=== PATIENT | male | born 1955 | race Caucasian/White ===

== ENCOUNTER 2017-03-20 19:41 | Emergency (ER) | payer MEDICARE, BC ==
[2017-03-20 19:46] VITALS: BP 154/92
[2017-03-20] MEDS ORDERED: Lidocaine 1% 30 ML SDV INJECT ONE (19:50)
[2017-03-20 20:49] LABS: CHLORIDE,CL 101 mmol/L (98-107); SODIUM,NA 135 mmol/L (136-145)
[2017-03-20] MEDS ORDERED: Diphtheria,Pertussis(Acell),Tetanus Vaccine 0.5 ML Syringe IM ONE (21:04)
--- NOTE | 2017-04-01 07:44 | ER ---
Date of Service: 03/20/2017 SUBJECTIVE: Roby presents to the emergency room with laceration to the posterior aspect of his head. He has a history of previous cerebrovascular accident and has residual weakness in his lower extremities. The patient was at home when he fell backwards striking his head on a door jamb. The patient had no loss of consciousness. The patient states that he is not experiencing any nausea, vomiting, or headache. He is unsure when his tetanus was last updated. PAST MEDICAL HISTORY: 1. Cerebrovascular disease with prior CVA. 2. Hypertension. 3. Dyslipidemia. 4. GERD. 5. Urinary retention. 6. Depression. 7. Anxiety. 8. Hypothyroidism. MEDICATIONS: 1. Acetaminophen. 2. Lipitor. 3. Dulcolax. 4. Wellbutrin XL. 5. Plavix. 6. Vitamin B12. 7. Folic acid. 8. Levothyroxine. 9. Prinivil. 10.Ativan. 11.Milk of magnesia. 12.Magnesium oxide. 13.Toprol-XL. 14.Multivitamin/minerals. 15.Protonix. 16.Flomax. 17.Trazodone. 18.Effexor XR. ALLERGIES: Dicloxacillin. REVIEW OF SYSTEMS: General. No fever or chills. HEENT: No sore throat, rhinorrhea, congestion. Respiratory: No shortness of breath. Cardiac: No chest pain or palpitations. GI: No nausea, vomiting, or diarrhea. No melena, hematochezia, or hematemesis. : Denies any dysuria. Musculoskeletal: No myalgias or arthralgias. He does complain of lower extremity weakness status post CVA. Neurologic: Please see history of present illness. Denies any focal neuro symptoms. Increased difficulties with speech or known acute changes to his mental status. PHYSICAL EXAMINATION: General: This is a 61-year-old male patient who is in no acute distress. Vital Signs: Blood pressure is 154/92, heart rate is 91, temperature is 36.1, respiratory rate is 18, and O2 saturation 92% on room air. Skin: Warm, pink, and dry. HEENT: Head is normocephalic. He has approximately 6 cm laceration noted to the posterior aspect of the patient's head. No obvious trauma noted to the underlying structures. Eyes, PERRLA. Extraocular movements are intact. Ears, TMs are clear. Lungs: Clear to auscultation. Heart: Regular rate and rhythm. Neurologic: The patient's speech is fluent. Gait is slow and shuffling. Family states that this is normal for the patient. RADIOGRAPHIC DATA: CT scan of the patient's brain was obtained. There was no evidence of any acute pathology. EMERGENCY ROOM COURSE: The laceration was cleansed with Shur-Clens and normal saline. He was anesthetized with approximately 4 mL of 1% lidocaine using sterile technique. A total of 8 skin uli was used to close the laceration. The patient tolerated this well. He remained stable under my care in the emergency room. ASSESSMENT: A 6 cm laceration to the occipital portion of the head. PLAN: The patient will be discharged. Keep the area dry for 24 hours. Return if there is any redness, swelling, or discharge. Sutures out in 10 days. Also, return to the emergency room if he develops any decreased level of consciousness, confusion, or other worrisome signs or symptoms. All questions were answered. CRYSTALK: 04/01/2017 01:19:09 MODL: 04/01/2017 01:50:32 /[id number]
== END 2017-03-20 21:41 | disposition home or self-care (01) ==
LOC: VM.ED 19:41
DX: S01.01XA Laceration without foreign body of scalp, initial encounter (principal); I10 Essential (primary) hypertension; E78.5 Hyperlipidemia, unspecified; K21.9 Gastro-esophageal reflux disease without esophagitis; F41.9 Anxiety disorder, unspecified; F32.9 Major depressive disorder, single episode, unspecified; E03.9 Hypothyroidism, unspecified; Z86.73 Personal history of transient ischemic attack (TIA), and cerebral infarction without residual deficits; Z88.1 Allergy status to other antibiotic agents; W01.198A Fall on same level from slipping, tripping and stumbling with subsequent striking against other object, initial encounter; Z23 Encounter for immunization
CPT/HCPCS: 12002; 12034; 36415; 70450; 80053; 82550; 82553; 84484; 85025; 85610; 90471; 90715; 93005; 99282; 99283-GF-25

== ENCOUNTER 2018-01-15 12:51 | Emergency (ER) | payer MEDICARE, BC ==
[2018-01-15 13:12] VITALS: BP 133/89
[2018-01-15] MEDS ORDERED: Take Home: Amoxicillin/Clavulanate K 875-125 MG Tab, 2 Tab Pack PO ONE ×2 (14:22→14:30)
[2018-01-15] MEDS ORDERED: Famotidine 20 MG Tab PO ONE (14:24)
--- NOTE | 2018-01-15 14:59 | EDM.PDOC ---
ED HPI GENERAL MEDICAL PROBLEM - General Chief Complaint: Gastrointestinal Problem Stated Complaint: vomiting Time Seen by Provider: 01/15/18 13:08 Source of Information: Reports: Patient, Family History Limitations: Reports: No Limitations - History of Present Illness INITIAL COMMENTS - FREE TEXT/NARRATIVE: Pt. was eating at a buffet this morning when he inadvertently aspirated some food. Pt. has a issue with this problem since having a CVA. Pt. had a video swallow study in november that initially was negative for aspiration, but there was some slight spillage after the initial swallow. This happened just prior to coming in to the ER. He states that he is not experiencing any fever or chills. This is a chronic problem with an acute manifestion. He is scheduled to f/u with neurology and apperently is also going to be undergoing an EGD at some point as well. Onset: Today Onset Date: 01/15/18 Onset Time: 13:04 Worsens with: Reports: Eating - Related Data Allergies Allergy/AdvReac Type Severity Reaction Status Date / Time dicloxacillin AdvReac Nausea Verified 04/05/17 00:09 Home Meds: Home Meds Pantoprazole [ProTONIX] 40 mg PO DAILY 05/07/14 [History] Clopidogrel Bisulfate [Clopidogrel] 75 mg PO DAILY 01/29/17 [History] Levothyroxine Sodium [Synthroid] 75 mcg PO ACBREAKFAST 01/29/17 [History] Metoprolol Succinate 25 mg PO DAILY 01/29/17 [History] Venlafaxine HCl [Venlafaxine ER] 225 mg PO DAILY 01/29/17 [History] atorvaSTATin [Lipitor] 40 mg PO BEDTIME 01/29/17 [History] traZODone 50 mg PO BEDTIME 01/29/17 [History] Tamsulosin [Flomax] 0.4 mg PO BEDTIME #0 01/31/17 [Rx] Lisinopril 20 mg PO BEDTIME 03/02/17 [History] Cyanocobalamin (Vitamin B-12) [Vitamin B-12] 1,000 mcg PO DAILY 03/20/17 [ History] Folic Acid 2 tab PO DAILY 03/20/17 [History] Magnesium Gluconate 500 mg PO DAILY 03/20/17 [History] Acetaminophen [Tylenol] 650 mg PO Q4H PRN tablet 04/29/17 [Rx] Nicotine Polacrilex [Nicotine Gum] 2 mg BC ASDIRECTED PRN #1 box 04/29/17 [Rx] buPROPion [Wellbutrin XL] 150 mg PO Q48H #7 tab.er 04/29/17 [Rx] Past Medical History - Past Health History Medical/Surgical History: Denies Medical/Surgical History HEENT History: Reports: Hard of Hearing, Impaired Vision, Other (See Below) Other HEENT History: Presbycusis with patient noncompliant with his left-sided hearing aid Cardiovascular History: Reports: Arrhythmia, Cardiomyopathy, High Cholesterol, Hypertension, Other (See Below) Other Cardiovascular History: Grade 1 diastolic dysfunction by echocardiogram Respiratory History: Reports: COPD, Intubation, Previous, Pneumonia, Recurrent, Pulmonary Fibrosis Gastrointestinal History: Reports: Colon Polyp, Gastritis, GERD, GI Bleed, PUD, Other (See Below) Other Gastrointestinal History: Moderate esophagitis by EGD in March 2017 with history of upper GI bleed at that time, colonic polyp of unknown character removed by colonoscopy in 2004 Genitourinary History: Reports: Acute Renal Failure, BPH, Chronic Renal Insuffiency, Renal Disease, Retention, Urinary, Other (See Below) Other Genitourinary History: nocturia, acute renal failure secondary to dehydration on 01/29/17, grade 3 renal insufficiency Musculoskeletal History: Reports: Arthritis, Back Pain, Chronic, Fracture, Osteoarthritis, Other (See Below) Other Musculoskeletal History: Bursitis, elbow, chronic right foot pain, left hand fracture in about 2004 with surgery as below Neurological History: Reports: CVA, Seizure, Speech Problems, TIA, Other (See Below) Other Neuro History: Possible TIA on 04/04/17, Left basal ganglion and frontal CVA on 04/08/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 falls with the patient requiring one assist and walker use, chronic fatigue Psychiatric History: Reports: Anxiety, Depression Endocrine/Metabolic History: Reports: Hypothyroidism, Other (See Below) Other Endocrine/Metabolic History: hyperglycemia, hypomagnesemia, vitamin B12 deficiency Hematologic History: Reports: Anemia, B12 Deficiency, Folic Acid, Other (See Below) Other Hematologic History: bruises easily Immunologic History: Reports: Other (See Below) Other Immunologic History: Hypoalbuminemia Oncologic (Cancer) History: Reports: None Dermatologic History: Reports: None - Infectious Disease History Infectious Disease History: Reports: Chicken Pox, Measles, Mumps. Denies: C- Difficile, Meningitis, Mononucleosis, MRSA, Pertussis (Whooping Cough), Rubella , Scarlet Fever, Shingles, TB, VRE - Past Surgical History Head Surgeries/Procedures: Reports: None HEENT Surgical History: Reports: LASIK, Oral Surgery, Other (See Below) Other HEENT Surgeries/Procedures: Multiple teeth extractions, LASIK in 2006 GI Surgical History: Reports: Colon, Colonoscopy, EGD, Polypectomy, Other (See Below) Other GI Surgeries/Procedures: Initial colonoscopy in 2004 with removal of probable benign colonic polyp at that time. EGD on 03/06/17 with moderate esophagitis noted, colonoscopy on 03/07/17 to the transverse colon with indication of possible distant previous right hemicolectomy for unknown reason although the patient and his are not aware of the surgery? Endocrine Surgical History: Reports: None Musculoskeletal Surgical History: Reports: ORIF, Other (See Below) Other Musculoskeletal Surgeries/Procedures:: Unknown hand surgery/ORIF of previous fracture in [id number] Oncologic Surgical History: Reports: None Dermatological Surgical History: Reports: None - Past Imaging History Past Imaging History: Reports: Cardiac Echo (04/05/17 with mild grade 1 diastolic dysfunction and otherwise normal ejection fraction of 5055 percent), CAT Scan ( Multiple CTs of the brain with last evaluation initially without contrast in this facility on 04/04/17 and then repeated at [facility] on with subsequent CT of the head and neck with contrast on 04/05/[address]. [address] scan of the head on 03/25/17 with previous evaluations on 03/20/17, , 05/07/14 and 04/08/14), MRA (MRI/MRA of the brain and cervical spine on ), MRI (Brain on 12/09/15), Ultrasound (Abdominal ultrasound on 07/18/12). Denies: Stress Testing Social & Family History - Family History HEENT: Reports: None Cardiac: Reports: Bypass, CAD, Hypertension, AL, Stent, Other (See Below) Other Cardiac Family History: Father with coronary artery disease with known history of AL however CABG in his 90s, mother with coronary artery disease and acute AL with PTCA/stent placement, hypertension in parents and brother GI: Reports: Irritable Bowel Syndrome, PUD, Other (See Below) Other GI Family History: Father with peptic ulcer disease, sister with irritable bowel syndrome : Reports: Other (See Below) Other Family History: Father with BPH Musculoskeletal: Reports: None Neurological: Reports: None Psychiatric: Reports: Anxiety, Depression, Other (See Below) Other Psychiatric Family History: Mother with anxiety depression disorder Endocrine/Metabolic: Reports: Diabetes, type II, Other (See Below) Other Endocrine/Metabolic Family History: Father with diabetes mellitus Hematologic: Reports: None Immunologic: Reports: None Dermatologic: Reports: None Oncologic: Reports: Lung, Skin, Other (See Below) Other Oncologic Family History: Mother with unknown type of skin cancer, sister with fatal metastatic lung cancer in her 40s with no history of tobacco use - Tobacco Use Smoking Status *Q: Former Smoker Used Tobacco, but Quit: Yes Month/Year Tobacco Last Used: 30 years - Caffeine Use Caffeine Use: Reports: Coffee (1 cup 2 times per week). Denies: Energy Drinks, Soda, Tea - Recreational Drug Use Recreational Drug Use: No - Living Situation & Occupation Living situation: Reports: ( in 1978, 2 children), Extended Care Facility (Swing bed unit at [facility]) Occupation: Retired ([employer] and retired since [employer] in 2013) ED ROS GENERAL - Review of Systems Review Of Systems: See Below Constitutional: Reports: No Symptoms HEENT: Reports: No Symptoms Respiratory: Reports: Wheezing, Cough Cardiovascular: Reports: No Symptoms Endocrine: Reports: No Symptoms GI/Abdominal: Reports: Vomiting : Reports: No Symptoms Musculoskeletal: Reports: No Symptoms Skin: Reports: No Symptoms Neurological: Reports: No Symptoms Psychiatric: Reports: No Symptoms Hematologic/Lymphatic: Reports: No Symptoms Immunologic: Reports: No Symptoms ED EXAM, GENERAL - Physical Exam Exam: See Below Exam Limited By: No Limitations General Appearance: Alert, WD/WN, No Apparent Distress Eye Exam: Bilateral Eye: EOMI, Normal Fundi, Normal Inspection, PERRL Ears: Normal External Exam, Normal Canal, Hearing Grossly Normal, Normal TMs Ear Exam: Bilateral Ear: Auricle Normal, Canal Normal, TM normal Nose: Normal Inspection, Normal Mucosa, No Blood Throat/Mouth: Normal Inspection, Normal Lips, Normal Teeth, Normal Gums, Normal Oropharynx, Normal Voice, No Airway Compromise Head: Atraumatic, Normocephalic Neck: Normal Inspection, Supple, Non-Tender, Full Range of Motion Respiratory/Chest: No Respiratory Distress, Lungs Clear, Normal Breath Sounds, No Accessory Muscle Use, Chest Non-Tender Cardiovascular: Normal Peripheral Pulses, Regular Rate, Rhythm, No Edema, No Gallop, No JVD, No Murmur, No Rub GI/Abdominal: Normal Bowel Sounds, Soft, Non-Tender, No Organomegaly, No Distention, No Abnormal Bruit, No Mass Back Exam: Normal Inspection, Full Range of Motion Extremities: Normal Inspection, Normal Range of Motion, Non-Tender, Normal Capillary Refill, No Pedal Edema Course - Vital Signs Last Recorded V/S: Last Vital Signs Temp 36.9 C 01/15/18 13:04 Pulse 92 01/15/18 13:04 Resp 16 01/15/18 13:04 BP 133/89 01/15/18 13:04 Pulse Ox 95 01/15/18 13:04 - Orders/Labs/Meds Orders: Active Orders 24 hr Category Date Time Status Chest 2V [CR] Stat Exams 01/15/18 13:13 Taken Meds: Medications Discontinued Medications Generic Name Dose Route Start Last Admin Trade Name Freq PRN Reason Stop Dose Admin Amoxicillin/Clavulanate Potassium 2 packet 01/15/18 14:22 Take Home: Amox/Clavulanate 875-12, 2 Tab Pac PO 01/15/18 14:23 ONETIME ONE Amoxicillin/Clavulanate Potassium 1 packet 01/15/18 14:30 01/15/18 14:31 Take Home: Amox/Clavulanate 875-12, 2 Tab Pac PO 01/15/18 14:31 1 packet ONETIME ONE Administration Famotidine 20 mg 01/15/18 14:24 01/15/18 14:30 Pepcid PO 01/15/18 14:25 20 mg ONETIME ONE Administration - Radiology Interpretation Free Text/Narrative:: chest x-ray obtained and found to be negative Departure - Departure Time of Disposition: 15:00 Disposition: Home, Self-Care 01 Condition: Good Clinical Impression: Acid reflux - Discharge Information Instructions: Famotidine tablets or gelcaps, Amoxicillin; Clavulanic Acid tablets, Aspiration Precautions, Adult Referrals: Breanna Mayfield, [Primary Care Provider] - Forms: ED Department Discharge Additional Instructions: Pepcid twice daily. Augmentin 875mg twice daily for 10 days. Follow-up with PCP next week. Sit upright for 30 min. after eating. Eat slowly, with smaller meals. Care Plan Goals: It sounds as though, with most of these episodes, the aspiration sometimes happens after the initial swallow. Advised family to encourage pt. to sit upright for 30-60 min after meals. Will start him on pepcid in addition to the pantoprazole to see if this helps with microaspiration of stomach contents. He should have an EGD at some point. His chest x-ray, for now, looks normal. - My Orders Last 24 Hours: My Active Orders 01/15/18 13:13 Chest 2V [CR] Stat - Assessment/Plan Last 24 Hours: My Active Orders 01/15/18 13:13 Chest 2V [CR] Stat
== END 2018-01-15 14:43 | disposition home or self-care (01) ==
LOC: VM.ED 12:51
DX: K21.9 Gastro-esophageal reflux disease without esophagitis (principal); E78.00 Pure hypercholesterolemia, unspecified; I12.9 Hypertensive chronic kidney disease with stage 1 through stage 4 chronic kidney disease, or unspecified chronic kidney disease; N18.9 Chronic kidney disease, unspecified; E03.9 Hypothyroidism, unspecified; Z88.1 Allergy status to other antibiotic agents; Z79.899 Other long term (current) drug therapy; Z87.891 Personal history of nicotine dependence
CPT/HCPCS: 71046; 99283-GF; 99284; A9270-GY

== ENCOUNTER 2018-02-16 08:48 | Day surgery (SDC) | payer MEDICARE, BC ==
[~2018-02-16 08:48] MED LIST: Lactated Ringers 1,000 ML IV SCH
[2018-02-16] MEDS ORDERED: Propofol 200 MG/20 ML SDV ONE (11:17)
[2018-02-16] MEDS ORDERED: Lidocaine 4% 5 ML Amp ONE (11:23)
[2018-02-16 13:31] VITALS: BP 149/86
--- NOTE | 2018-02-16 19:35 | OR ---
SURGERY DATE: 02/16/2018 REFERRING PROVIDER: Breanna Mayfield DO. PRE-OPERATIVE DIAGNOSES: 1. Dysphagia with catching sensation in the midsternal area. The patient had episode on Mother's day where he had emesis due to the dysphagia. 2. History of esophagitis noted last March on EGD. 3. Chronic cough. The patient is currently on Protonix 40 mg daily as well as sucralfate up to 4 times a day although the patient does not remember to take it that often. 4. History of previous stroke in 2013. Positive alcohol use of about 2 drinks per day and chewing tobacco. POST-OPERATIVE DIAGNOSES: 1. A 3 cm sliding-type hiatal hernia with some minimal inflammation present. Cold biopsy is taken from the GE junction. 2. Some mild chronic-appearing enteritis. Cold biopsies taken x2 bites from the antrum. 3. Cold biopsy is also taken from mid esophagus which appeared normal. PROCEDURE: EGD with cold biopsy x3 sites (antrum, GE junction, and mid esophagus). SURGEON: Shaheed Schreiber M.D. ANESTHESIA: Topical anesthesia consisting of Cetacaine spray was used in the pharynx. DESCRIPTION OF PROCEDURE: Roby Marion is a 62-year-old male who was brought to the endoscope suite after discussion of risks and benefits (including but not limited to reaction to medication, bleeding, infection, aspiration, perforation). Informed consent was obtained for monitored anesthesia care and esophagogastroduodenoscopy along with possible biopsy and/or dilatation. Pre-procedure exam including oral cavity was unremarkable. IV, oxygen, and monitors were placed. Topical anesthesia consisting of Cetacaine spray was used in the pharynx. Patient was placed in the left lateral position and sedation was administered. A bite block was placed gently and scope lightly lubricated and passed through the bite block and over the tongue. Hypopharynx and vocal cords were visualized unremarkable. Scope was passed through the cricopharynx and into the esophagus. The scope was then passed through the distal esophagus and the GE junction was visualized and photographed. The GE junction was remarkable for a 3 cm sliding-type hiatal hernia with some minimal inflammation present. Cold biopsy x2 bites taken on the way out. Vocal cords were visualized. The scope was advanced into the stomach and gastric flores was suctioned. Pylorus was identified and intubated and then the scope was advanced to the third portion of the duodenum. The second and third portions of the duodenum were unremarkable. Duodenal bulb was visualized and unremarkable. The scope was brought back into the stomach and the pylorus and antrum were remarkable for some mild chronic-appearing inflammation. Cold biopsy x2 bites taken from the antrum. The scope was brought back into the stomach. Cold biopsy x2 bites was taken from this area to check for H. pylori and sent for path. Scope was then retroflexed to visualize the angularis, fundus, body, and cardia. This view did show the sliding-type hiatal hernia but was otherwise unremarkable. The stomach was desufflated of air and then the scope was slowly withdrawn, and the esophagus was closely visualized during withdrawal all the way into the posterior pharynx. In the upper esophagus there was an area of heterotopic type mucosa. Cold biopsy x2 bites was taken of this area and sent for path. The patient tolerated the procedure well and went to recovery in stable condition. The patient was monitored until at baseline status. Findings and discharge instructions were reviewed and the patient was discharged in good condition. COMPLICATIONS: None. TOTAL TIME: 9 minutes. ESTIMATED BLOOD LOSS: About 1 mL. RECOMMENDATIONS/FOLLOW-UP: We will have the patient change his PPI to twice a day for a month to see if this can make a difference. There was nothing to dilate during the exam today. We will await results of biopsies from 3 separate areas. Okay for the patient to resume his Plavix tomorrow as long as no bleeding issues. I would like to kindly thank you, Breanna Mayfield DO, for this referral. DMB: 02/16/2018 12:20:44 MODL: 02/16/2018 19:28:08 /[id number]
== END 2018-02-16 13:18 | disposition home or self-care (01) ==
LOC: VM.SDS 08:48
PROVIDERS: ATTEND Family Medicine
DX: R13.10 Dysphagia, unspecified (principal); R05 Cough; K29.50 Unspecified chronic gastritis without bleeding; K44.9 Diaphragmatic hernia without obstruction or gangrene; K52.9 Noninfective gastroenteritis and colitis, unspecified; K20.9 Esophagitis, unspecified; I10 Essential (primary) hypertension; G47.00 Insomnia, unspecified; E03.9 Hypothyroidism, unspecified; E53.8 Deficiency of other specified B group vitamins; E83.42 Hypomagnesemia; F33.40 Major depressive disorder, recurrent, in remission, unspecified; F17.220 Nicotine dependence, chewing tobacco, uncomplicated; Z79.02 Long term (current) use of antithrombotics/antiplatelets; Z79.899 Other long term (current) drug therapy; Z88.0 Allergy status to penicillin; Z88.8 Allergy status to other drugs, medicaments and biological substances; Z86.73 Personal history of transient ischemic attack (TIA), and cerebral infarction without residual deficits
CPT/HCPCS: 00731; J2704; J7120

== ENCOUNTER 2019-10-12 15:17 | Emergency (ER) | payer MEDICARE, BC ==
--- NOTE | 2019-10-12 14:19 | EDM.PDOC ---
ED HPI GENERAL MEDICAL PROBLEM - General Chief Complaint: General Stated Complaint: general Time Seen by Provider: 10/12/19 14:30 Source of Information: Reports: EMS, EMS Notes Reviewed, Family History Limitations: Reports: No Limitations, Intoxication - History of Present Illness INITIAL COMMENTS - FREE TEXT/NARRATIVE: Patient comes into the emergency department with EMS for concerns of right sided facial droop and concerns post fall from a standing position while on anticoagulants. contacted EMS in regards to the patient has had an increase in facial droop and unsteady gait. Patient did have a stroke in 2013 that did leave him with some moderate deficits on the right side. Patient does need to ambulate with a walker for safe mobility. He does have facial droop on the right side since his stroke in 2013 but told EMS that she felt it has been getting worse today. Patient did fall approximately 24 hours ago hitting his head. did state that he did develop a laceration to the back of his head at that time but it did stop bleeding on its own. The patient is on Plavix 75 mg daily. She also has a long-standing history of alcohol use. Patient is currently smells of ETOH. The states the patient drinks on a daily basis about 6-10 shots of whiskey mixed in water daily (about 3 tall drinks). is concerned because the patient will drink almost on a daily basis and will not take care of himself. She states that he has no drive or ambition to care for himself any longer. She also states that he will skip meals or eat candy bars in place of meals. She states that the last couple months he has severely deteriorated mentally and physically. She states that he does have a diagnosis of dementia and Alzheimer's and has noticed that he has progressively gotten worse especially when he is under the influence of alcohol. He states that he does normally fall multiple times a day after he has been consuming alcoholic beverages. She also states that she has multiple dense and holes in her was related to his falling. She states that he often will get up without his walker which she is supposed to have at all times. She states that he did wake up this morning around 9 AM without any concerns or complaints however she did notice that he was drinking a tall glass of liquid and would not let her try the beverage. she states he normally will not let her drink the beverage if it does have alcohol in it. She states that he has multiple strong EtOH spell today. The more he has drank the more unsteady he has become throughout the day. She also noted after his second drink he began to develop slurred speech around 10: 30 or 11 AM. Onset: Gradual - Related Data Allergies Allergy/AdvReac Type Severity Reaction Status Date / Time buspirone Allergy Cannot Verified 10/12/19 15:55 Remember dicloxacillin AdvReac Nausea Verified 10/12/19 15:55 Home Meds: Home Meds Pantoprazole [ProTONIX] 40 mg PO DAILY 05/07/14 [History] Clopidogrel Bisulfate [Clopidogrel] 75 mg PO DAILY 01/29/17 [History] Levothyroxine Sodium [Synthroid] 75 mcg PO ACBREAKFAST 01/29/17 [History] Metoprolol Succinate 25 mg PO DAILY 01/29/17 [History] Venlafaxine HCl [Venlafaxine ER] 150 mg PO DAILY 01/29/17 [History] atorvaSTATin [Lipitor] 40 mg PO BEDTIME 01/29/17 [History] traZODone 50 mg PO BEDTIME 01/29/17 [History] Cyanocobalamin (Vitamin B-12) [Vitamin B-12] 1,000 mcg PO DAILY 03/20/17 [ History] Acetaminophen [Tylenol] 650 mg PO Q4H PRN tablet 04/29/17 [Rx] Magnesium Oxide [Magnesium] 500 mg PO DAILY 01/15/18 [History] Venlafaxine HCl [Venlafaxine ER] 75 mg PO DAILY 01/15/18 [History] buPROPion HCl [Wellbutrin Xl] 300 mg PO DAILY 07/23/18 [History] Cephalexin [Keflex] 250 mg PO QID 10 Days #40 capsule 10/12/19 [Rx] Donepezil HCl [Aricept] 10 mg PO BEDTIME 10/12/19 [History] Memantine HCl [Namenda Xr] 28 mg PO DAILY 10/12/19 [History] Past Medical History - Past Health History Medical/Surgical History: Denies Medical/Surgical History HEENT History: Reports: Hard of Hearing, Impaired Vision, Other (See Below) Other HEENT History: dysphagia. esophagitis Cardiovascular History: Reports: High Cholesterol, Hypertension, Syncope Other Cardiovascular History: tachycardia Respiratory History: Reports: COPD, Intubation, Previous, Pneumonia, Recurrent, Pulmonary Fibrosis Other Respiratory History: chronic cough Gastrointestinal History: Reports: Colon Polyp, Gastritis, GERD, GI Bleed, PUD, Other (See Below) Other Gastrointestinal History: Moderate esophagitis by EGD in March 2017 with history of upper GI bleed at that time, colonic polyp of unknown character removed by colonoscopy in 2004 Genitourinary History: Reports: Acute Renal Failure, BPH, Chronic Renal Insuffiency, Renal Disease, Retention, Urinary, Other (See Below) Other Genitourinary History: nocturia, acute renal failure secondary to dehydration on 01/29/17, grade 3 renal insufficiency Musculoskeletal History: Reports: Arthritis, Back Pain, Chronic, Fracture, Osteoarthritis, Other (See Below) Other Musculoskeletal History: 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 falls with the patient requiring one assist and walker use, chronic fatigue Psychiatric History: Reports: Depression Other Psychiatric History: chewing tobacco use. insomnia Endocrine/Metabolic History: Reports: Hypothyroidism Other Endocrine/Metabolic History: hyperglycemia, hypomagnesemia, vitamin B12 deficiency Hematologic History: Reports: B12 Deficiency Other Hematologic History: hypomagnesium Immunologic History: Reports: Other (See Below) Other Immunologic History: Hypoalbuminemia Oncologic (Cancer) History: Reports: None Dermatologic History: Reports: None - Infectious Disease History Infectious Disease History: Reports: Chicken Pox, Measles, Mumps - Past Surgical History Head Surgeries/Procedures: Reports: None HEENT Surgical History: Reports: LASIK, Oral Surgery, Other (See Below) Other HEENT Surgeries/Procedures: Multiple teeth extractions, LASIK in 2006 Cardiovascular Surgical History: Reports: None Respiratory Surgical History: Reports: None GI Surgical History: Reports: Colon, Colonoscopy, EGD, Polypectomy, Other (See Below) Other GI Surgeries/Procedures: Initial colonoscopy in 2004 with removal of probable benign colonic polyp at that time. EGD on 03/06/17 with moderate esophagitis noted, colonoscopy on 03/07/17 to the transverse colon with indication of possible distant previous right hemicolectomy for unknown reason although the patient and his are not aware of the surgery? Male Surgical History: Reports: None Endocrine Surgical History: Reports: None Neurological Surgical History: Reports: None Musculoskeletal Surgical History: Reports: ORIF, Other (See Below) Other Musculoskeletal Surgeries/Procedures:: Unknown hand surgery/ORIF of previous fracture in [id number] Oncologic Surgical History: Reports: None Dermatological Surgical History: Reports: None - Past Imaging History Past Imaging History: Reports: Cardiac Echo (04/05/17 with mild grade 1 diastolic dysfunction and otherwise normal ejection fraction of 5055 percent), CAT Scan ( Multiple CTs of the brain with last evaluation initially without contrast in this facility on 04/04/17 and then repeated at [facility] on with subsequent CT of the head and neck with contrast on 04/05/[address]. [address] scan of the head on 03/25/17 with previous evaluations on 03/20/17, , 05/07/14 and 04/08/14), MRA (MRI/MRA of the brain and cervical spine on ), MRI (Brain on 12/09/15), Ultrasound (Abdominal ultrasound on 07/18/12). Denies: Stress Testing Social & Family History - Family History HEENT: Reports: None Cardiac: Reports: Bypass, CAD, Hypertension, MO, Stent, Other (See Below) Other Cardiac Family History: Father with coronary artery disease with known history of MO however CABG in his 90s, mother with coronary artery disease and acute MO with PTCA/stent placement, hypertension in parents and brother GI: Reports: Irritable Bowel Syndrome, PUD, Other (See Below) Other GI Family History: Father with peptic ulcer disease, sister with irritable bowel syndrome : Reports: Other (See Below) Other Family History: Father with BPH Musculoskeletal: Reports: None Neurological: Reports: None Psychiatric: Reports: Anxiety, Depression, Other (See Below) Other Psychiatric Family History: Mother with anxiety depression disorder Endocrine/Metabolic: Reports: Diabetes, type II, Other (See Below) Other Endocrine/Metabolic Family History: Father with diabetes mellitus Hematologic: Reports: None Immunologic: Reports: None Dermatologic: Reports: None Oncologic: Reports: Lung, Skin, Other (See Below) Other Oncologic Family History: Mother with unknown type of skin cancer, sister with fatal metastatic lung cancer in her 40s with no history of tobacco use - Caffeine Use Caffeine Use: Reports: Coffee (1 cup 2 times per week). Denies: Energy Drinks, Soda, Tea - Living Situation & Occupation Living situation: Reports: ( in 1978, 2 children), Extended Care Facility (Swing bed unit at [facility]) Occupation: Retired ([employer] and retired since CVA in 2013) ED ROS GENERAL - Review of Systems Review Of Systems: See Below Constitutional: Reports: No Symptoms HEENT: Reports: No Symptoms Respiratory: Reports: No Symptoms Cardiovascular: Reports: No Symptoms Endocrine: Reports: No Symptoms GI/Abdominal: Reports: No Symptoms Neurological: Reports: Pre-Existing Deficit (right side facial droop and unsteady gait from strok 2013 ), Trouble Speaking (slurred speech noticed after consuming alcohol ), Difficulty Walking (since stroke 2013- uses walker ). Denies: Dizziness, Headache, Numbness, Paresthesia, Syncope Psychiatric: Reports: No Symptoms Hematologic/Lymphatic: Reports: No Symptoms Immunologic: Reports: No Symptoms ED EXAM, GENERAL - Physical Exam Exam: See Below Exam Limited By: No Limitations General Appearance: Alert, WD/WN, No Apparent Distress Eye Exam: Bilateral Eye: EOMI, PERRL Ears: Normal External Exam, Normal Canal, Hearing Grossly Normal Nose: Normal Inspection, No Blood, Clear Rhinorrhea Throat/Mouth: Normal Lips, Normal Voice, No Airway Compromise Head: Other (scabbed laceration occipital region ) Neck: Normal Inspection, Supple Respiratory/Chest: No Respiratory Distress, Lungs Clear, Normal Breath Sounds, No Accessory Muscle Use, Chest Non-Tender Cardiovascular: Normal Peripheral Pulses, Regular Rate, Rhythm, No Edema GI/Abdominal: Normal Bowel Sounds, Soft, Non-Tender, No Abnormal Bruit, Other ( infected/crusted impetigo lesions noted. mutiple throughout abdomen. Redness around each site. No drainage noted ) Back Exam: Normal Inspection, Full Range of Motion Extremities: Normal Inspection, Non-Tender, No Pedal Edema, Normal Capillary Refill Neurological: Alert, Oriented, No Motor/Sensory Deficits Psychiatric: Normal Affect, Normal Mood Skin Exam: Warm, Dry, Intact, Normal Color, No Rash Course - Orders/Labs/Meds Orders: Active Orders 24 hr Category Date Time Status EKG Documentation Completion [RC] STAT Care 10/12/19 14:15 Active UA RFX KELL AND CULT IF INDIC [URIN] Stat Lab 10/12/19 15:32 Received Labs: Laboratory Tests 10/12/19 10/12/19 10/12/19 Range/Units 14:22 14:42 14:42 WBC 4.3 (4.0-10.0) x10^3/uL RBC 4.39 L (4.5-6.0) x10^6/uL Hgb 13.9 L (14.0-18.0) g/dL Hct 41.4 (40.0-52.0) % MCV 94.3 H D (78.0-93.0) fL MCH 31.7 (26.0-32.0) pg MCHC 33.6 (32.0-36.0) g/dL RDW Coeff of Karin 14.8 (10.0-15.0) % Plt Count 211 (130-400) x10^3/uL Neut % (Auto) 56.5 (50.0-80.0) % Lymph % (Auto) 28.5 (25.0-50.0) % [place] % (Auto) 12.7 H (2.0-11.0) % Eos % (Auto) 2.1 (0.0-4.0) % Baso % (Auto) 0.2 (0.2-1.2) % PT 9.8 L (10.0-12.8) SEC INR 0.9 L (2.0-3.5) Sodium (136-145) mmol/L Potassium (3.5-5.1) mmol/L Chloride (98-107) mmol/L Carbon Dioxide (21-32) mmol/L Anion Gap (10-20) mmol/L BUN (7-18) mg/dL Creatinine (0.70-1.30) mg/dL Est Cr Clr Drug Dosing Estimated GFR (MDRD) Glucose (74-106) mg/dL Calcium (8.5-10.1) mg/dL Corrected Calcium (8.5-10.1) mg/dL Total Bilirubin (0.2-1.0) mg/dL AST (15-37) U/L ALT (16-63) U/L Alkaline Phosphatase (46-116) U/L Troponin I (<=0.056) ng/mL NT-Pro-B Natriuret Pep (<=125) pg/mL Total Protein (6.4-8.2) g/dL Albumin (3.4-5.0) g/dL Globulin Albumin/Globulin Ratio Amylase 74 (25-115) U/L Lipase 134 (73-393) U/L Ethyl Alcohol (0-3) mg/dL 10/12/19 Range/Units 14:42 WBC (4.0-10.0) x10^3/uL RBC (4.5-6.0) x10^6/uL Hgb (14.0-18.0) g/dL Hct (40.0-52.0) % MCV (78.0-93.0) fL MCH (26.0-32.0) pg MCHC (32.0-36.0) g/dL RDW Coeff of Karin (10.0-15.0) % Plt Count (130-400) x10^3/uL Neut % (Auto) (50.0-80.0) % Lymph % (Auto) (25.0-50.0) % [place] % (Auto) (2.0-11.0) % Eos % (Auto) (0.0-4.0) % Baso % (Auto) (0.2-1.2) % PT (10.0-12.8) SEC INR (2.0-3.5) Sodium 146 H (136-145) mmol/L Potassium 3.9 (3.5-5.1) mmol/L Chloride 107 (98-107) mmol/L Carbon Dioxide 25 (21-32) mmol/L Anion Gap 17.9 (10-20) mmol/L BUN 15 (7-18) mg/dL Creatinine 1.2 (0.70-1.30) mg/dL Est Cr Clr Drug Dosing TNP Estimated GFR (MDRD) > 60 Glucose 84 (74-106) mg/dL Calcium 8.7 (8.5-10.1) mg/dL Corrected Calcium 9.26 (8.5-10.1) mg/dL Total Bilirubin 0.4 (0.2-1.0) mg/dL AST 20 (15-37) U/L ALT 19 (16-63) U/L Alkaline Phosphatase 128 H (46-116) U/L Troponin I < 0.017 (<=0.056) ng/mL NT-Pro-B Natriuret Pep 340 H (<=125) pg/mL Total Protein 6.8 (6.4-8.2) g/dL Albumin 3.3 L (3.4-5.0) g/dL Globulin 3.5 Albumin/Globulin Ratio 0.94 Amylase (25-115) U/L Lipase (73-393) U/L Ethyl Alcohol 163 H (0-3) mg/dL - Re-Assessments/Exams Free Text/Narrative Re-Assessment/Exam: 10/12/19 15:54 alert and oriented. VSS. Patient is not willing to be hospitalized. Patient's pulses bedside and is willing to assume care and monitor the patient at home. Did discuss risk and benefits regarding discharge. Spouse willing to assume care and to monitor patient throughout the weekend. Home health referral will be completed. Departure - Departure Time of Disposition: 15:50 Disposition: Home, Self-Care 01 Clinical Impression: Alcohol abuse, Anticoagulant long-term use, Frequent falls, Skin sore, Impetigo Fall Qualifiers: Encounter type: initial encounter Qualified Code(s): W19.XXXA - Unspecified fall, initial encounter Failure to thrive Qualifiers: Failure to thrive age range: in adult Qualified Code(s): R62.7 - Adult failure to thrive - Discharge Information *PRESCRIPTION DRUG MONITORING PROGRAM REVIEWED*: Not Applicable *COPY OF PRESCRIPTION DRUG MONITORING REPORT IN PATIENT LYNN: Not Applicable Instructions: Alcohol Use Disorder, Fall Prevention in the Home, Adult, Easy-to -Read, Failure to Thrive, Adult, Impetigo, Adult, Cephalexin oral suspension, Probiotics, Heart-Healthy Eating Plan Forms: ED Department Discharge Additional Instructions: 1. Take Keflex as prescribed for her impetigo, can continue to use creams to help alleviate discomfort 2. Take a probiotic while taking antibiotics to promote GI health 3. Medication for a daily vitamin chronic alcohol use 4. Education/information is provided regarding fall prevention, activity, diet, and alcohol use disorder 5. Home health referral has been submitted 6. Your primary care per Doctor was sent a referral regarding the [employer] 7. Activity and diet as tolerated 8. Call with any questions or concerns 9. CT scan completed today was negative, labs within normal limits Sepsis Event Note - Focused Exam Date Exam was Performed: 10/12/19 Time Exam was Performed: 15:36 - My Orders Last 24 Hours: My Active Orders 10/12/19 14:15 EKG Documentation Completion [RC] STAT 10/12/19 15:32 UA RFX KELL AND CULT IF INDIC [URIN] Stat - Assessment/Plan Last 24 Hours: My Active Orders 10/12/19 14:15 EKG Documentation Completion [RC] STAT 10/12/19 15:32 UA RFX KELL AND CULT IF INDIC [URIN] Stat Assessment:: 1. Multiple falls 2. Alcohol abuse 3. Intoxication 4. Infected impetigo 5. Slurred speech Plan: 1. A trauma code was initiated prior to the patient's arrival due to patient falling while on anticoagulants. EMS is also concerned patient has a new onset of facial drooping. Stroke protocol was also initiated and followed 2. CT of the head without contrast completed emergency room. Results reviewed with patient and family 3. Labs completed in the ER. Results reviewed with patient and family 4. EKG ordered in the Emergency department 5. UA ordered emergency department 6. 1430 NIH:3 1500 NIH: 3 1535 NIH: 3 7. /spouse at the bedside to discuss long-term options with the family. The is concerned regarding his long-term compliance and rehabilitation. Patient is not willing to be hospitalized and is adamant of his discharge home. Patient and spouse are willing to assume risk with discharge. They are willing to accept a home health referral and referral to [employer] [employer] for further assistance within the home. 8. Education was provided to the patient and family regarding alcohol use, safe mobility in the home, De-cluttering, adequate oral intake, appropriate/healthy diet, activity, diet, and follow-up care 9. Oral Keflex also be given to the patient for an abdominal multiple infected impetigo sores. Patient has taken Keflex in the past with no reaction and is willing to take medication again. Risk regarding medication was provided to the patient. 10. All questions and concerns were addressed with the patient and family prior to discharge
--- NOTE | 2019-10-12 14:56 | CT ---
[id number] CT/CT Head Stroke Protocol EXAM: CT Head Stroke Protocol CLINICAL DATA: STROKE SXS, FALL, ON BLOOD THINNERS. COMPARISON STUDY: July 23, 2018. FINDINGS: No intracranial hemorrhage, extra-axial fluid collection, mass, or acute ischemia. Moderate diffuse parenchymal atrophy and nonspecific chronic white matter disease. Findings are nonspecific but commonly seen as sequela of chronic small vessel disease. Paranasal sinuses and mastoid air cells are clear. IMPRESSION: No acute intracranial findings. Results relayed to Tami Diaz at time of dictation. Daryl Zee MD 10/12/19 [id number] Thank you for allowing us to participate in the care of your patient.
[2019-10-12 15:18] LABS: ANION GAP 17.9 mmol/L (10-20); CHLORIDE,CL 107 mmol/L (98-107); SODIUM,NA 146 mmol/L (136-145)
[2019-10-12] MEDS ORDERED: Sodium Chloride 0.9% 1,000 ML IV ONE (16:40)
== END 2019-10-12 16:13 | disposition home or self-care (01) ==
LOC: VM.ED 16:13
DX: S01.01XA Laceration without foreign body of scalp, initial encounter (principal); F10.129 Alcohol abuse with intoxication, unspecified; Y90.6 Blood alcohol level of 120-199 mg/100 ml; R62.7 Adult failure to thrive; R47.81 Slurred speech; R29.810 Facial weakness; L01.00 Impetigo, unspecified; I12.9 Hypertensive chronic kidney disease with stage 1 through stage 4 chronic kidney disease, or unspecified chronic kidney disease; N18.9 Chronic kidney disease, unspecified; J44.9 Chronic obstructive pulmonary disease, unspecified; E78.00 Pure hypercholesterolemia, unspecified; E03.9 Hypothyroidism, unspecified; F32.9 Major depressive disorder, single episode, unspecified; Z88.1 Allergy status to other antibiotic agents; Z79.01 Long term (current) use of anticoagulants; Z88.8 Allergy status to other drugs, medicaments and biological substances; Z86.73 Personal history of transient ischemic attack (TIA), and cerebral infarction without residual deficits; Z79.02 Long term (current) use of antithrombotics/antiplatelets; Z79.899 Other long term (current) drug therapy; W19.XXXA Unspecified fall, initial encounter
CPT/HCPCS: 36415; 70450; 80053; 80307; 81003; 82150; 83690; 83880; 84484; 85025; 85610; 93005; 96360; 99284; J7030

== ENCOUNTER 2019-12-16 14:00 | Emergency (ER) | payer MEDICARE, BC ==
[2019-12-16] MEDS ORDERED: Sodium Chloride 0.9% 10 ML Syringe FLUSH PRN (14:01)
--- NOTE | 2019-12-16 14:26 | CT ---
[id number] CT/CT Head Stroke Protocol Exam: CT Head Stroke Protocol Clinical Data: NEUROLOGIC DEFICIT COMPARISON: CORRELATION IS MADE WITH OCTOBER 12, 2019 FINDINGS: There is no hyperdense middle cerebral artery sign The aspect score is 10 There is no mass or mass effect There is no hemorrhage or hydrocephalus. Involutional changes are advanced for age Old lacunar hypodensities are seen Report was called at time of the dictation IMPRESSION: NEGATIVE PLAIN CT BRAIN Sumit Saenz MD 12/16/19 1390 Thank you for allowing us to participate in the care of your patient.
[2019-12-16] MEDS ORDERED: MVI, Adult with Vitamin K 10 ML, Folic Acid 1 MG, Thiamine 100 MG in Sodium Chloride 0.... IV SCH ×4 (14:30)
[2019-12-16] MEDS ORDERED: Iopamidol 612 MG/ML 100 ML Bottle IVPUSH ONE (14:31)
[2019-12-16 14:54] LABS: ANION GAP 16.4 mmol/L (10-20); CHLORIDE,CL 104 mmol/L (98-107); SODIUM,NA 143 mmol/L (136-145)
--- NOTE | 2019-12-16 14:56 | EDM.PDOC ---
ED HPI GENERAL MEDICAL PROBLEM - General Stated Complaint: Weakness ? stroke Time Seen by Provider: 12/16/19 14:00 Source of Information: Reports: Patient History Limitations: Reports: No Limitations - History of Present Illness INITIAL COMMENTS - FREE TEXT/NARRATIVE: Patient comes emergency department today from home with his with concerns of neuro changes. According to the patient he drank alcohol quite heavily 2 days ago. Yesterday somewhere between 4 PM and 6 PM he developed increasing right facial droop thick speech as well as difficulty using his right hand and paresthesias to his right arm. He refused to come to the emergency department last night. His symptoms continued today so his brought him to the ER. He relates that he does have a history of a stroke. He does have a history of dementia as well as alcoholism. He reports that he falls on a daily basis. He probably fell 2 days ago when he was drinking but he is unsure. He denies any head neck or back pain. He denies any visual disturbances. He does complain of a thick tongue that feels swollen and difficult for him to move. He has no difficulty breathing or swallowing. No chest pain no shortness of breath or difficulty breathing. No palpitation generalized weakness or syncope. No abdominal pain nausea or vomiting. He does complain of some discoordination of his right hand he had a difficult time using his phone. He also complains of what sounds to be some tingling sensation on the lateral aspect of his right arm and third fourth and fifth fingers. He denies any changes bowel or bladder habits. He denies any change in the functionality of his lower extremities. Been taking his medication on a daily basis he reports. - Related Data Allergies Allergy/AdvReac Type Severity Reaction Status Date / Time buspirone Allergy Cannot Verified 12/16/19 14:08 Remember dicloxacillin AdvReac Nausea Verified 12/16/19 14:08 Home Meds: Home Meds Pantoprazole [ProTONIX] 40 mg PO DAILY 05/07/14 [History] Clopidogrel Bisulfate [Clopidogrel] 75 mg PO DAILY 01/29/17 [History] Levothyroxine Sodium [Synthroid] 75 mcg PO ACBREAKFAST 01/29/17 [History] Metoprolol Succinate 25 mg PO DAILY 01/29/17 [History] Venlafaxine HCl [Venlafaxine ER] 150 mg PO DAILY 01/29/17 [History] atorvaSTATin [Lipitor] 40 mg PO BEDTIME 01/29/17 [History] traZODone 50 mg PO BEDTIME 01/29/17 [History] Cyanocobalamin (Vitamin B-12) [Vitamin B-12] 1,000 mcg PO DAILY 03/20/17 [ History] Acetaminophen [Tylenol] 650 mg PO Q4H PRN tablet 04/29/17 [Rx] Magnesium Oxide [Magnesium] 250 mg PO DAILY 01/15/18 [History] Venlafaxine HCl [Venlafaxine ER] 75 mg PO DAILY 01/15/18 [History] buPROPion HCl [Wellbutrin Xl] 300 mg PO DAILY 07/23/18 [History] Donepezil HCl [Aricept] 10 mg PO BEDTIME 10/12/19 [History] Memantine HCl [Namenda Xr] 28 mg PO DAILY 10/12/19 [History] Losartan Potassium 1 tab PO DAILY 12/16/19 [History] Past Medical History - Past Health History Medical/Surgical History: Denies Medical/Surgical History HEENT History: Reports: Hard of Hearing, Impaired Vision, Other (See Below) Other HEENT History: dysphagia. esophagitis Cardiovascular History: Reports: High Cholesterol, Hypertension, Syncope Other Cardiovascular History: tachycardia Respiratory History: Reports: COPD, Intubation, Previous, Pneumonia, Recurrent, Pulmonary Fibrosis Other Respiratory History: chronic cough Gastrointestinal History: Reports: Colon Polyp, Gastritis, GERD, GI Bleed, PUD, Other (See Below) Other Gastrointestinal History: Moderate esophagitis by EGD in March 2017 with history of upper GI bleed at that time, colonic polyp of unknown character removed by colonoscopy in 2004 Genitourinary History: Reports: Acute Renal Failure, BPH, Chronic Renal Insuffiency, Renal Disease, Retention, Urinary, Other (See Below) Other Genitourinary History: nocturia, acute renal failure secondary to dehydration on 01/29/17, grade 3 renal insufficiency Musculoskeletal History: Reports: Arthritis, Back Pain, Chronic, Fracture, Osteoarthritis, Other (See Below) Other Musculoskeletal History: 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 falls with the patient requiring one assist and walker use, chronic fatigue Psychiatric History: Reports: Depression Other Psychiatric History: chewing tobacco use. insomnia Endocrine/Metabolic History: Reports: Hypothyroidism Other Endocrine/Metabolic History: hyperglycemia, hypomagnesemia, vitamin B12 deficiency Hematologic History: Reports: B12 Deficiency Other Hematologic History: hypomagnesium Immunologic History: Reports: Other (See Below) Other Immunologic History: Hypoalbuminemia Oncologic (Cancer) History: Reports: None Dermatologic History: Reports: None - Infectious Disease History Infectious Disease History: Reports: Chicken Pox, Measles, Mumps - Past Surgical History Head Surgeries/Procedures: Reports: None HEENT Surgical History: Reports: LASIK, Oral Surgery, Other (See Below) Other HEENT Surgeries/Procedures: Multiple teeth extractions, LASIK in 2006 Cardiovascular Surgical History: Reports: None Respiratory Surgical History: Reports: None GI Surgical History: Reports: Colon, Colonoscopy, EGD, Polypectomy, Other (See Below) Other GI Surgeries/Procedures: Initial colonoscopy in 2004 with removal of probable benign colonic polyp at that time. EGD on 03/06/17 with moderate esophagitis noted, colonoscopy on 03/07/17 to the transverse colon with indication of possible distant previous right hemicolectomy for unknown reason although the patient and his are not aware of the surgery? Male Surgical History: Reports: None Endocrine Surgical History: Reports: None Neurological Surgical History: Reports: None Musculoskeletal Surgical History: Reports: ORIF, Other (See Below) Other Musculoskeletal Surgeries/Procedures:: Unknown hand surgery/ORIF of previous fracture in [id number] Oncologic Surgical History: Reports: None Dermatological Surgical History: Reports: None - Past Imaging History Past Imaging History: Reports: Cardiac Echo (04/05/17 with mild grade 1 diastolic dysfunction and otherwise normal ejection fraction of 5055 percent), CAT Scan ( Multiple CTs of the brain with last evaluation initially without contrast in this facility on 04/04/17 and then repeated at [facility] on with subsequent CT of the head and neck with contrast on 04/05/[address]. [address] scan of the head on 03/25/17 with previous evaluations on 03/20/17, , 05/07/14 and 04/08/14), MRA (MRI/MRA of the brain and cervical spine on ), MRI (Brain on 12/09/15), Ultrasound (Abdominal ultrasound on 07/18/12). Denies: Stress Testing Social & Family History - Family History HEENT: Reports: None Cardiac: Reports: Bypass, CAD, Hypertension, NV, Stent, Other (See Below) Other Cardiac Family History: Father with coronary artery disease with known history of NV however CABG in his 90s, mother with coronary artery disease and acute NV with PTCA/stent placement, hypertension in parents and brother GI: Reports: Irritable Bowel Syndrome, PUD, Other (See Below) Other GI Family History: Father with peptic ulcer disease, sister with irritable bowel syndrome : Reports: Other (See Below) Other Family History: Father with BPH Musculoskeletal: Reports: None Neurological: Reports: None Psychiatric: Reports: Anxiety, Depression, Other (See Below) Other Psychiatric Family History: Mother with anxiety depression disorder Endocrine/Metabolic: Reports: Diabetes, type II, Other (See Below) Other Endocrine/Metabolic Family History: Father with diabetes mellitus Hematologic: Reports: None Immunologic: Reports: None Dermatologic: Reports: None Oncologic: Reports: Lung, Skin, Other (See Below) Other Oncologic Family History: Mother with unknown type of skin cancer, sister with fatal metastatic lung cancer in her 40s with no history of tobacco use - Caffeine Use Caffeine Use: Reports: Coffee (1 cup 2 times per week). Denies: Energy Drinks, Soda, Tea - Living Situation & Occupation Living situation: Reports: ( in 1978, 2 children), Extended Care Facility (Swing bed unit at [facility]) Occupation: Retired ([employer] and retired since CVA in 2013) ED ROS GENERAL - Review of Systems Review Of Systems: Comprehensive ROS is negative, except as noted in HPI. ED EXAM, NEURO - Physical Exam Exam: See Below Exam Limited By: No Limitations General Appearance: Alert, WD/WN, Anxious Eye Exam: Bilateral Eye: EOMI, PERRL Ears: Normal External Exam, Normal TMs Nose: Normal Inspection Throat/Mouth: Normal Inspection, Normal Oropharynx Head Exam: Atraumatic, Normocephalic Neck: Normal Inspection, Supple, Carotid Bruit (left sided. ) Respiratory/Chest: No Respiratory Distress, Lungs Clear, Normal Breath Sounds, No Accessory Muscle Use Cardiovascular: Normal Peripheral Pulses, Regular Rate, Rhythm GI/Abdominal: Normal Bowel Sounds, Soft, Non-Tender (Male) Exam: Deferred Rectal (Males) Exam: Deferred Neurological: Alert, Normal Dorsiflexion, Normal Plantar Flexion, Normal Gait, Oriented x 3, Ataxia (Right hand), Tremor (more jerky shakey than anything like alcohol withdrawal. ), Other (NO pronator drift. Able to hold up legs. NIH 4. He has very jerky shakey movements and he is somewhat anxious I wonder if he is not havin some alcohol withdrawal as well. ). No: CN II-XII Intact (Right facial droop and eye brow laxity. Speech is thick understandable but thick and somewhat hard to comprehend. Appropriate communication although. ) DTR: 2+: Bicep (R), Bicep (L), Tricep (R), Tricep (L), Patella (R), Patella (L) , Achilles (R), Achilles (L) Back Exam: CVA Tenderness (R), Decreased Range of Motion Extremities: Normal Inspection, Normal Range of Motion, No Pedal Edema Psychiatric: Anxious Skin Exam: Warm, Dry, Intact, Normal Color EKG INTERPRETATION EKG Date: 12/16/19 Time: 14:46 Rhythm: NSR Rate (Beats/Min): 78 [place]ument: Normal P-Wave: Present QRS: Normal ST-T: Normal QT: Normal Comparison: No Change Course - Orders/Labs/Meds Orders: Active Orders 24 hr Category Date Time Status EKG Documentation Completion [RC] STAT Care 12/16/19 14:02 Active CTA Neck W & W/O Contrast [Ang Neck] [CT] Stat Exams 12/16/19 14:23 Taken Peripheral IV Insertion Adult [OM.PC] Stat Oth 12/16/19 14:02 Ordered Labs: Laboratory Tests 12/16/19 12/16/19 12/16/19 Range/Units 14:10 14:25 14:25 WBC 5.4 (4.0-10.0) x10^3/uL RBC 4.90 (4.5-6.0) x10^6/uL Hgb 14.9 (14.0-18.0) g/dL Hct 44.5 (40.0-52.0) % MCV 90.8 D (78.0-93.0) fL MCH 30.4 (26.0-32.0) pg MCHC 33.5 (32.0-36.0) g/dL RDW Coeff of Karin 14.2 (10.0-15.0) % Plt Count 262 (130-400) x10^3/uL Neut % (Auto) 71.9 (50.0-80.0) % Lymph % (Auto) 18.8 L (25.0-50.0) % Burnet % (Auto) 7.4 (2.0-11.0) % Eos % (Auto) 1.7 (0.0-4.0) % Baso % (Auto) 0.2 (0.2-1.2) % PT 9.7 L (10.0-12.8) SEC INR 0.9 L (2.0-3.5) APTT 22.3 L (24.0-36.0) SEC Sodium (136-145) mmol/L Potassium (3.5-5.1) mmol/L Chloride (98-107) mmol/L Carbon Dioxide (21-32) mmol/L Anion Gap (10-20) mmol/L BUN (7-18) mg/dL Creatinine (0.70-1.30) mg/dL Est Cr Clr Drug Dosing Estimated GFR (MDRD) Glucose (74-106) mg/dL POC Glucose 88 (74-106) mg/dL Calcium (8.5-10.1) mg/dL Corrected Calcium (8.5-10.1) mg/dL Magnesium (1.8-2.4) mg/dL Total Bilirubin (0.2-1.0) mg/dL AST (15-37) U/L ALT (16-63) U/L Alkaline Phosphatase (46-116) U/L POC Troponin I (0.00-0.08) ng/mL Total Protein (6.4-8.2) g/dL Albumin (3.4-5.0) g/dL Globulin Albumin/Globulin Ratio Ethyl Alcohol (0-3) mg/dL 12/16/19 12/16/19 Range/Units 14:25 14:31 WBC (4.0-10.0) x10^3/uL RBC (4.5-6.0) x10^6/uL Hgb (14.0-18.0) g/dL Hct (40.0-52.0) % MCV (78.0-93.0) fL MCH (26.0-32.0) pg MCHC (32.0-36.0) g/dL RDW Coeff of Karin (10.0-15.0) % Plt Count (130-400) x10^3/uL Neut % (Auto) (50.0-80.0) % Lymph % (Auto) (25.0-50.0) % Burnet % (Auto) (2.0-11.0) % Eos % (Auto) (0.0-4.0) % Baso % (Auto) (0.2-1.2) % PT (10.0-12.8) SEC INR (2.0-3.5) APTT (24.0-36.0) SEC Sodium 143 (136-145) mmol/L Potassium 4.4 (3.5-5.1) mmol/L Chloride 104 (98-107) mmol/L Carbon Dioxide 27 (21-32) mmol/L Anion Gap 16.4 (10-20) mmol/L BUN 15 (7-18) mg/dL Creatinine 1.4 H (0.70-1.30) mg/dL Est Cr Clr Drug Dosing TNP Estimated GFR (MDRD) 52 Glucose 98 (74-106) mg/dL POC Glucose (74-106) mg/dL Calcium 8.9 (8.5-10.1) mg/dL Corrected Calcium 9.38 (8.5-10.1) mg/dL Magnesium 1.7 L (1.8-2.4) mg/dL Total Bilirubin 0.5 (0.2-1.0) mg/dL AST 22 (15-37) U/L ALT 25 (16-63) U/L Alkaline Phosphatase 187 H (46-116) U/L POC Troponin I 0.00 (0.00-0.08) ng/mL Total Protein 7.0 (6.4-8.2) g/dL Albumin 3.4 (3.4-5.0) g/dL Globulin 3.6 Albumin/Globulin Ratio 0.94 Ethyl Alcohol < 3 (0-3) mg/dL Meds: Medications Discontinued Medications Generic Name Dose Route Start Last Admin Trade Name Freq PRN Reason Stop Dose Admin Multivitamins/Minerals 1 tab/ 0 tab 12/16/19 15:00 12/16/19 15:02 Thiamine HCl 100 mg/ Folic PO 1 each Acid 1 mg/ Magnesium Oxide 400 DAILY CLEO Administration mg Multivitamins/Minerals 10 ml/ 1,011.2 mls @ 150 mls/hr 12/16/19 14:30 Folic Acid 1 mg/ Thiamine HCl IV 12/18/19 21:15 100 mg/ Sodium Chloride Q24H CLEO Lactated Ringer's 1,000 mls @ 250 mls/hr 12/16/19 15:45 12/16/19 15:52 Ringers, Lactated IV 250 mls/hr ASDIRECTED CLEO Administration Iopamidol 100 ml 12/16/19 14:31 12/16/19 14:36 Isovue-300 (61%) IVPUSH 12/16/19 14:32 100 ml ONETIME ONE Administration Labetalol HCl 20 mg 12/16/19 15:43 12/16/19 15:53 Normodyne IVPUSH 12/16/19 15:44 20 mg NOW ONE Administration Protocol Lorazepam 1 mg 12/16/19 15:40 12/16/19 15:52 Ativan IVPUSH 12/16/19 15:41 1 mg STAT ONE Administration Sodium Chloride 10 ml 12/16/19 14:01 Saline Flush FLUSH ASDIRECTED PRN Keep Vein Open - Radiology Interpretation Free Text/Narrative:: CT of the head per radiology is negative for plain CT brain CTA of the head and the neck shows no intracranial large vessel occlusion. Atheromatous disease of common carotid bifurcation bilaterally greater than 70% on the left and the internal carotid 50 to 69% on the right internal carotid follow-up MRI suggested. - Re-Assessments/Exams Free Text/Narrative Re-Assessment/Exam: 12/16/19 15:59 This patient was treated as a stroke alert upon arrival. Immediately to the CT scanner. NIH is 4. He is out of almost 24 hours of symptoms although he is a rather poor historian of the time of when this started. He was given some Ativan for anxiety which is most likely due to alcohol withdrawal as he was drinking quite heavily 2 nights ago. He was also noted to become increasingly hypertensive while in the emergency department he was given some labetalol for blood pressure of 205/120. I called and spoke with Dr. Reddy at [facility] in [place]. HPI ER COURSE findings and concerns were relayed to him. He accepted the patient in transfer at this time for further care management and evaluation. I discussed the plan of care with the patient and he was comfortable with this plan after discussion of the results of the CT CTA and lab evaluation. I also wonder if some of his shaking and jerkiness is from alcohol withdrawal. Departure - Departure Time of Disposition: 15:32 Disposition: DC/Tfer to Acute Hospital 02 Clinical Impression: CVA (cerebral vascular accident) Qualifiers: CVA mechanism: unspecified Qualified Code(s): I63.9 - Cerebral infarction, unspecified - Discharge Information Referrals: PCP,None [Primary Care Provider] - Forms: Interfacility Transfer EMTALA Sepsis Event Note - Focused Exam Date Exam was Performed: 12/16/19 Time Exam was Performed: 16:40 - My Orders Last 24 Hours: My Active Orders 12/16/19 14:02 EKG Documentation Completion [RC] STAT Peripheral IV Insertion Adult [OM.PC] Stat 12/16/19 14:23 CTA Neck W & W/O Contrast [Ang Neck] [CT] Stat - Assessment/Plan Last 24 Hours: My Active Orders 12/16/19 14:02 EKG Documentation Completion [RC] STAT Peripheral IV Insertion Adult [OM.PC] Stat 12/16/19 14:23 CTA Neck W & W/O Contrast [Ang Neck] [CT] Stat Assessment:: ? CVA vs TIA Carotid Artery stenosis. Hx of alcohol abuse misuse. Plan: Transfer to [facility] for further evaluation and management at a stroke center.
[2019-12-16] MEDS ORDERED: Multivitamins w-Iron/Ca/FA/Min 1 TAB, Thiamine 100 MG, Folic Acid 1 MG, Magnesium Oxide... PO SCH ×3 (15:00)
[2019-12-16 15:11] LABS: PTT,PARTIAL THROMBOPLSTIN TIME 22.3 SEC (24.0-36.0)
--- NOTE | 2019-12-16 15:18 | CT ---
[id number] CT/CTA Head Neck Exam: CTA Head Neck Clinical Data: RIGHT-SIDED NEUROLOGIC DEFICIT COMPARISON: CORRELATION IS MADE WITH THE EARLIER PLAIN CT BRAIN FINDINGS: There is no intracranial large vessel occlusion There is greater than 50% narrowing of the proximal cervical right internal carotid There is an estimated greater than 70% stenosis of the cervical left internal carotid There is atheromatous disease of the common carotid bifurcation bilaterally There are bilateral origins of the posterior cerebral arteries The right vertebral artery is dominant The left vertebral artery ends in the posterior inferior cerebellar artery IMPRESSION: NO INTRACRANIAL LARGE VESSEL OCCLUSION ATHEROMATOUS DISEASE OF COMMON CAROTID BIFURCATION BILATERALLY GREATER THAN 70% STENOSIS PROXIMAL CERVICAL LEFT INTERNAL CAROTID 50-69% STENOSIS PROXIMAL CERVICAL RIGHT INTERNAL CAROTID CONSIDER FOLLOW-UP MRI REPORT CALLED AT TIME OF DICTATION Suimt Saenz MD 12/16/19 [id number] Thank you for allowing us to participate in the care of your patient.
[2019-12-16] MEDS ORDERED: LORazepam 2 MG/ML SDV IVPUSH ONE (15:40)
[2019-12-16] MEDS ORDERED: Labetalol 20 MG/4 ML Syringe IVPUSH ONE (15:43)
[2019-12-16] MEDS ORDERED: Lactated Ringers 1,000 ML IV SCH (15:45)
== END 2019-12-16 16:08 | disposition short-term general hospital (02) ==
LOC: VM.ED 14:00
DX: I63.9 Cerebral infarction, unspecified (principal); I12.9 Hypertensive chronic kidney disease with stage 1 through stage 4 chronic kidney disease, or unspecified chronic kidney disease; N18.9 Chronic kidney disease, unspecified; J44.9 Chronic obstructive pulmonary disease, unspecified; E78.00 Pure hypercholesterolemia, unspecified; K21.9 Gastro-esophageal reflux disease without esophagitis; M19.90 Unspecified osteoarthritis, unspecified site; F32.9 Major depressive disorder, single episode, unspecified; E03.9 Hypothyroidism, unspecified; Z88.8 Allergy status to other drugs, medicaments and biological substances; Z88.1 Allergy status to other antibiotic agents; Z79.899 Other long term (current) drug therapy; Z79.02 Long term (current) use of antithrombotics/antiplatelets
CPT/HCPCS: 70450; 70496; 70498; 80053; 80307; 82962; 83735; 84484; 85025; 85610; 85730; 93010; 96374; 96375; 99284-GF; 99285-25; A9270-GY; J2060; J3490; J7120; Q9967

== ENCOUNTER 2020-11-01 15:12 | Emergency (ER) | payer MEDICARE, BC ==
--- NOTE | 2020-11-01 15:34 | EDM.PDOC ---
ED HPI GENERAL MEDICAL PROBLEM - General Chief Complaint: ENT Problem Stated Complaint: WEEK, CANNOT SWALLOW Time Seen by Provider: 11/01/20 15:15 Source of Information: Reports: Patient History Limitations: Reports: No Limitations - History of Present Illness INITIAL COMMENTS - FREE TEXT/NARRATIVE: Patient comes into the emergency department via EMS with complaints of choking. Patient was eating Jell-O at home and ended up choking on Jell-O. The states that he had a 2 to 3-second unresponsive episode after he was choking. She states that he was coughing excessively. And the patient was alert and oriented right away. Patient denies any pain, shortness of breath, chest pain, dizziness, lightheadedness, blurred vision, abdominal pain, nausea, vomiting, or peripheral edema. Patient states that he feels like he is at his baseline. He has no major concerns or complaints. Patient does have a significant right- sided deficit related to stroke that happened a year ago. Patient states that he did just recently have his pantoprazole stopped and he has noticed that has had increased amount of acid reflux. He also states that he has been having more increase of dysphagia in the last few weeks as primary care provider has been working out. Patient denies any recent acute changes. Onset: Today Location: Reports: Other Quality: Reports: Other Severity: Mild Improves with: Reports: None Worsens with: Reports: None Context: Reports: Other Associated Symptoms: Reports: No Other Symptoms - Related Data Allergies Allergy/AdvReac Type Severity Reaction Status Date / Time buspirone Allergy Cannot Verified 12/16/19 14:08 Remember dicloxacillin AdvReac Nausea Verified 12/16/19 14:08 Home Meds: Home Meds Pantoprazole [ProTONIX] 40 mg PO DAILY 05/07/14 [History] Clopidogrel Bisulfate [Clopidogrel] 75 mg PO DAILY 01/29/17 [History] Levothyroxine Sodium [Synthroid] 75 mcg PO ACBREAKFAST 01/29/17 [History] Metoprolol Succinate 25 mg PO DAILY 01/29/17 [History] Venlafaxine HCl [Venlafaxine ER] 150 mg PO DAILY 01/29/17 [History] atorvaSTATin [Lipitor] 40 mg PO BEDTIME 01/29/17 [History] traZODone 50 mg PO BEDTIME 01/29/17 [History] Cyanocobalamin (Vitamin B-12) [Vitamin B-12] 1,000 mcg PO DAILY 03/20/17 [History] Acetaminophen [Tylenol] 650 mg PO Q4H PRN tablet 04/29/17 [Rx] Magnesium Oxide [Magnesium] 250 mg PO DAILY 01/15/18 [History] Venlafaxine HCl [Venlafaxine ER] 75 mg PO DAILY 01/15/18 [History] buPROPion HCL [Wellbutrin Xl] 300 mg PO DAILY 07/23/18 [History] Donepezil HCl [Aricept] 10 mg PO BEDTIME 10/12/19 [History] Memantine HCl [Namenda Xr] 28 mg PO DAILY 10/12/19 [History] Losartan Potassium 1 tab PO DAILY 12/16/19 [History] Past Medical History - Past Health History Medical/Surgical History: Denies Medical/Surgical History HEENT History: Reports: Hard of Hearing, Impaired Vision, Other (See Below) Other HEENT History: dysphagia. esophagitis Cardiovascular History: Reports: High Cholesterol, Hypertension, Syncope Other Cardiovascular History: tachycardia Respiratory History: Reports: COPD, Intubation, Previous, Pneumonia, Recurrent, Pulmonary Fibrosis Other Respiratory History: chronic cough Gastrointestinal History: Reports: Colon Polyp, Gastritis, GERD, GI Bleed, PUD, Other (See Below) Other Gastrointestinal History: Moderate esophagitis by EGD in March 2017 with history of upper GI bleed at that time, colonic polyp of unknown character removed by colonoscopy in 2004 Genitourinary History: Reports: Acute Renal Failure, BPH, Chronic Renal Insuffiency, Renal Disease, Retention, Urinary, Other (See Below) Other Genitourinary History: nocturia, acute renal failure secondary to dehydration on 01/29/17, grade 3 renal insufficiency Musculoskeletal History: Reports: Arthritis, Back Pain, Chronic, Fracture, Osteoarthritis, Other (See Below) Other Musculoskeletal History: 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 falls with the patient requiring one assist and walker use, chronic fatigue Psychiatric History: Reports: Depression Other Psychiatric History: chewing tobacco use. insomnia Endocrine/Metabolic History: Reports: Hypothyroidism Other Endocrine/Metabolic History: hyperglycemia, hypomagnesemia, vitamin B12 deficiency Hematologic History: Reports: B12 Deficiency Other Hematologic History: hypomagnesium Immunologic History: Reports: Other (See Below) Other Immunologic History: Hypoalbuminemia Oncologic (Cancer) History: Reports: None Dermatologic History: Reports: None - Infectious Disease History Infectious Disease History: Reports: Chicken Pox, Measles, Mumps - Past Surgical History Head Surgeries/Procedures: Reports: None HEENT Surgical History: Reports: LASIK, Oral Surgery, Other (See Below) Other HEENT Surgeries/Procedures: Multiple teeth extractions, LASIK in 2006 GI Surgical History: Reports: Colon, Colonoscopy, EGD, Polypectomy, Other (See Below) Other GI Surgeries/Procedures: Initial colonoscopy in 2004 with removal of probable benign colonic polyp at that time. EGD on 03/06/17 with moderate esophagitis noted, colonoscopy on 03/07/17 to the transverse colon with indication of possible distant previous right hemicolectomy for unknown reason although the patient and his are not aware of the surgery? Musculoskeletal Surgical History: Reports: ORIF, Other (See Below) Other Musculoskeletal Surgeries/Procedures:: Unknown hand surgery/ORIF of previous fracture in [id number] Oncologic Surgical History: Reports: None Dermatological Surgical History: Reports: None - Past Imaging History Past Imaging History: Reports: Cardiac Echo (04/05/17 with mild grade 1 diastolic dysfunction and otherwise normal ejection fraction of 5055 percent), CAT Scan (Multiple CTs of the brain with last evaluation initially without contrast in this facility on 04/04/17 and then repeated at [facility] on 04/05/[address] of the head and neck with contrast on 04/05/[address]. [address] scan of the head on 03/25/17 with previous evaluations on 03/20/17, 01/29/17, 05/07/14 and 04/08/14), MRA (MRI/MRA of the brain and cervical spine on 04/05/17), MRI (Brain on 12/09/15), Ultrasound (Abdominal ultrasound on 07/18/12). Denies: Stress Testing Social & Family History - Family History HEENT: Reports: None Cardiac: Reports: Bypass, CAD, Hypertension, TX, Stent, Other (See Below) Other Cardiac Family History: Father with coronary artery disease with known history of TX however CABG in his 90s, mother with coronary artery disease and acute TX with PTCA/stent placement, hypertension in parents and brother GI: Reports: Irritable Bowel Syndrome, PUD, Other (See Below) Other GI Family History: Father with peptic ulcer disease, sister with irritable bowel syndrome : Reports: Other (See Below) Other Family History: Father with BPH Musculoskeletal: Reports: None Neurological: Reports: None Psychiatric: Reports: Anxiety, Depression, Other (See Below) Other Psychiatric Family History: Mother with anxiety depression disorder Endocrine/Metabolic: Reports: Diabetes, type II, Other (See Below) Other Endocrine/Metabolic Family History: Father with diabetes mellitus Hematologic: Reports: None Immunologic: Reports: None Dermatologic: Reports: None Oncologic: Reports: Lung, Skin, Other (See Below) Other Oncologic Family History: Mother with unknown type of skin cancer, sister with fatal metastatic lung cancer in her 40s with no history of tobacco use - Caffeine Use Caffeine Use: Reports: Coffee (1 cup 2 times per week). Denies: Energy Drinks, Soda, Tea - Living Situation & Occupation Living situation: Reports: ( in 1978, 2 children), Extended Care Facility (Swing bed unit at [facility]) Occupation: Retired ([employer] and retired since [employer] in 2013) ED ROS GENERAL - Review of Systems Review Of Systems: Comprehensive ROS is negative, except as noted in HPI. Constitutional: Reports: No Symptoms HEENT: Reports: No Symptoms Respiratory: Reports: No Symptoms Cardiovascular: Reports: No Symptoms Endocrine: Reports: No Symptoms GI/Abdominal: Reports: No Symptoms : Reports: No Symptoms Musculoskeletal: Reports: No Symptoms Skin: Reports: No Symptoms Neurological: Reports: No Symptoms Psychiatric: Reports: No Symptoms Hematologic/Lymphatic: Reports: No Symptoms Immunologic: Reports: No Symptoms ED EXAM, GENERAL - Physical Exam Exam: See Below Exam Limited By: No Limitations General Appearance: Alert, WD/WN, No Apparent Distress Eye Exam: Bilateral Eye: EOMI, PERRL Nose: Normal Inspection, Normal Mucosa Throat/Mouth: Normal Inspection, Normal Lips, Normal Teeth, Normal Gums, No Airway Compromise Head: Atraumatic, Normocephalic Neck: Normal Inspection, Supple, Non-Tender Respiratory/Chest: No Respiratory Distress, Lungs Clear, Normal Breath Sounds, No Accessory Muscle Use, Chest Non-Tender Cardiovascular: Normal Peripheral Pulses, Regular Rate, Rhythm, No Edema, No Rub GI/Abdominal: Normal Bowel Sounds, Soft, Non-Tender, No Mass Back Exam: Normal Inspection, Full Range of Motion Extremities: Normal Inspection, Normal Range of Motion, Non-Tender, Normal Capillary Refill Neurological: Alert, Oriented. No: Other (right sided Deficits noted) Psychiatric: Normal Affect, Normal Mood Skin Exam: Warm, Dry, Intact Departure - Departure Time of Disposition: 16:05 Disposition: Home, Self-Care 01 Condition: Good Clinical Impression: Choking Qualifiers: Encounter type: initial encounter Qualified Code(s): T17.308A - Unspecified foreign body in larynx causing other injury, initial encounter Dysphagia Qualifiers: Dysphagia type: unspecified Qualified Code(s): R13.10 - Dysphagia, unspecified - Discharge Information *PRESCRIPTION DRUG MONITORING PROGRAM REVIEWED*: Not Applicable *COPY OF PRESCRIPTION DRUG MONITORING REPORT IN PATIENT LYNN: Not Applicable Instructions: Dysphagia Forms: ED Department Discharge Additional Instructions: 1. rest 2. Continue all at home medications 3. Activity and diet as tolerated 4. Can take over the counter Tylenol for any pain or discomfort 5. Follow up with PCP if symptoms continue, return, or progress 6. Call with any questions or concerns - Assessment/Plan Assessment:: 1. Choking 2. Chronic Dysphagia Plan: 1. X-ray completed in the emergency department results reviewed with the patient 2. Medication offered to the patient 3. Education regarding splinting, activity, [id number] medications, and follow-up care provided. 4. All questions and concerns addressed with the patient prior to discharge
--- NOTE | 2020-11-01 16:00 | CR ---
[id number] RAD/RAD Chest PA or AP 1V EXAM: FRONTAL CHEST INDICATION: CHOKING. COMPARISON: January 15, 2018. DISCUSSION: Chronic bilateral rib fractures. The lungs are clear. Normal heart size. An event recorder overlying the left mid chest. IMPRESSION: 1. No acute findings. Tuan Gentile MD 11/01/20 [id number] Thank you for allowing us to participate in the care of your patient.
[2020-11-01 16:45] VITALS: BP 103/58; PULSE 82
== END 2020-11-01 16:16 | disposition home or self-care (01) ==
LOC: VM.ED 15:12
DX: R09.89 Other specified symptoms and signs involving the circulatory and respiratory systems (principal); R13.10 Dysphagia, unspecified; E78.00 Pure hypercholesterolemia, unspecified; J44.9 Chronic obstructive pulmonary disease, unspecified; K21.9 Gastro-esophageal reflux disease without esophagitis; E03.9 Hypothyroidism, unspecified; I12.9 Hypertensive chronic kidney disease with stage 1 through stage 4 chronic kidney disease, or unspecified chronic kidney disease; N18.9 Chronic kidney disease, unspecified; Z72.0 Tobacco use; Z88.1 Allergy status to other antibiotic agents; Z88.8 Allergy status to other drugs, medicaments and biological substances; Z79.02 Long term (current) use of antithrombotics/antiplatelets; Z79.899 Other long term (current) drug therapy; Z86.73 Personal history of transient ischemic attack (TIA), and cerebral infarction without residual deficits
CPT/HCPCS: 71045; 99284; 99284-25

== ENCOUNTER 2021-01-24 21:44 | Emergency (ER) | payer MEDICARE, BC ==
--- NOTE | 2021-01-24 22:11 | EDM.PDOC ---
ED HPI GENERAL MEDICAL PROBLEM - General Stated Complaint: SYNCOPAL EPISODE Time Seen by Provider: 01/24/21 21:44 Source of Information: Reports: Patient History Limitations: Reports: No Limitations - History of Present Illness INITIAL COMMENTS - FREE TEXT/NARRATIVE: Patient comes into the emergency department by EMS with complaint of syncopal episode. It was stated by the patient's family that he had been more weak and less mobile the last 2 to 3 days he is also had some increase in nausea and a productive cough. later stated that the patient had fallen yesterday onto his right side but did not complain of anything to his . It was noted earlier today that he had 2 syncopal episodes. The was trying to get him out of bed this evening and tried to assist him to the upright position and ended up passing out and stayed unresponsive for greater length of time than normal than he had the previous times earlier in the day. She ended up contacting 911 for further assistance and guidance. EMS state that when they tried to sit the patient up and he had a syncopal episode for them as well. Shortly after that they did take a palpable Blood pressure and did find that he was 90 systolic. Patient had no other further syncopal episodes in route to the hospital. Patient is a poor historian but states that he does not have any pain or discomfort other than the right lower quadrant. Patient does have a history of significant stroke with right-sided dysphagia and weakness. Onset: Gradual Location: Reports: Generalized Quality: Reports: Other Improves with: Reports: Other Worsens with: Reports: Other Context: Reports: Other Associated Symptoms: Reports: No Other Symptoms Right Lower Abdominal Pain Score (Numeric/FACES): 4 - Related Data Allergies Allergy/AdvReac Type Severity Reaction Status Date / Time buspirone Allergy Cannot Verified 11/01/20 16:38 Remember dicloxacillin AdvReac Nausea Verified 11/01/20 16:38 Home Meds: Home Meds Pantoprazole [ProTONIX] 40 mg PO DAILY 05/07/14 [History] Clopidogrel Bisulfate [Clopidogrel] 75 mg PO DAILY 01/29/17 [History] Levothyroxine Sodium [Synthroid] 75 mcg PO ACBREAKFAST 01/29/17 [History] Metoprolol Succinate 25 mg PO DAILY 01/29/17 [History] Venlafaxine HCl [Venlafaxine ER] 150 mg PO DAILY 01/29/17 [History] atorvaSTATin [Lipitor] 40 mg PO BEDTIME 01/29/17 [History] traZODone 50 mg PO BEDTIME 01/29/17 [History] Cyanocobalamin (Vitamin B-12) [Vitamin B-12] 1,000 mcg PO DAILY 03/20/17 [History] Acetaminophen [Tylenol] 650 mg PO Q4H PRN tablet 04/29/17 [Rx] Magnesium Oxide [Magnesium] 250 mg PO DAILY 01/15/18 [History] Venlafaxine HCl [Venlafaxine ER] 75 mg PO DAILY 01/15/18 [History] buPROPion HCL [Wellbutrin Xl] 300 mg PO DAILY 07/23/18 [History] Donepezil HCl [Aricept] 10 mg PO BEDTIME 10/12/19 [History] Memantine HCl [Namenda Xr] 28 mg PO DAILY 10/12/19 [History] Losartan Potassium 1 tab PO DAILY 12/16/19 [History] Past Medical History - Past Health History Medical/Surgical History: Denies Medical/Surgical History HEENT History: Reports: Hard of Hearing, Impaired Vision, Other (See Below) Other HEENT History: dysphagia. esophagitis Cardiovascular History: Reports: High Cholesterol, Hypertension, Syncope Other Cardiovascular History: tachycardia Respiratory History: Reports: COPD, Intubation, Previous, Pneumonia, Recurrent, Pulmonary Fibrosis Other Respiratory History: chronic cough Gastrointestinal History: Reports: Colon Polyp, Gastritis, GERD, GI Bleed, PUD, Other (See Below) Other Gastrointestinal History: Moderate esophagitis by EGD in March 2017 with history of upper GI bleed at that time, colonic polyp of unknown character removed by colonoscopy in 2004 Genitourinary History: Reports: Acute Renal Failure, BPH, Chronic Renal Insuffiency, Renal Disease, Retention, Urinary, Other (See Below) Other Genitourinary History: nocturia, acute renal failure secondary to dehydration on 01/29/17, grade 3 renal insufficiency Musculoskeletal History: Reports: Arthritis, Back Pain, Chronic, Fracture, Osteoarthritis, Other (See Below) Other Musculoskeletal History: 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 falls with the patient requiring one assist and walker use, chronic fatigue Psychiatric History: Reports: Depression Other Psychiatric History: chewing tobacco use. insomnia Endocrine/Metabolic History: Reports: Hypothyroidism Other Endocrine/Metabolic History: hyperglycemia, hypomagnesemia, vitamin B12 deficiency Hematologic History: Reports: B12 Deficiency Other Hematologic History: hypomagnesium Immunologic History: Reports: Other (See Below) Other Immunologic History: Hypoalbuminemia Oncologic (Cancer) History: Reports: None Dermatologic History: Reports: None - Infectious Disease History Infectious Disease History: Reports: Chicken Pox, Measles, Mumps - Past Surgical History Head Surgeries/Procedures: Reports: None HEENT Surgical History: Reports: LASIK, Oral Surgery, Other (See Below) Other HEENT Surgeries/Procedures: Multiple teeth extractions, LASIK in 2006 Cardiovascular Surgical History: Reports: None Respiratory Surgical History: Reports: None GI Surgical History: Reports: Colon, Colonoscopy, EGD, Polypectomy, Other (See Below) Other GI Surgeries/Procedures: Initial colonoscopy in 2004 with removal of probable benign colonic polyp at that time. EGD on 03/06/17 with moderate esophagitis noted, colonoscopy on 03/07/17 to the transverse colon with indication of possible distant previous right hemicolectomy for unknown reason although the patient and his are not aware of the surgery? Male Surgical History: Reports: None Endocrine Surgical History: Reports: None Neurological Surgical History: Reports: None Musculoskeletal Surgical History: Reports: ORIF, Other (See Below) Other Musculoskeletal Surgeries/Procedures:: Unknown hand surgery/ORIF of previous fracture in [id number] Oncologic Surgical History: Reports: None Dermatological Surgical History: Reports: None - Past Imaging History Past Imaging History: Reports: Cardiac Echo (04/05/17 with mild grade 1 diastolic dysfunction and otherwise normal ejection fraction of 5055 percent), CAT Scan (Multiple CTs of the brain with last evaluation initially without contrast in this facility on 04/04/17 [address] then repeated at [facility] on 04/05/[address] of the head and neck with contrast on 04/05/[address]. [address] scan of the head on 03/25/17 with previous evaluations on 03/20/17, 01/29/17, 05/07/14 and 04/08/14), MRA (MRI/MRA of the brain and cervical spine on 04/05/17), MRI (Brain on 12/09/15), Ultrasound (Abdominal ultrasound on 07/18/12). Denies: Stress Testing Social & Family History - Family History HEENT: Reports: None Cardiac: Reports: Bypass, CAD, Hypertension, [place], Stent, Other (See Below) Other Cardiac Family History: Father with coronary artery disease with known history of [place] however CABG in his 90s, mother with coronary artery disease and acute [place] with PTCA/stent placement, hypertension in parents and brother GI: Reports: Irritable Bowel Syndrome, PUD, Other (See Below) Other GI Family History: Father with peptic ulcer disease, sister with irritable bowel syndrome : Reports: Other (See Below) Other Family History: Father with BPH Musculoskeletal: Reports: None Neurological: Reports: None Psychiatric: Reports: Anxiety, Depression, Other (See Below) Other Psychiatric Family History: Mother with anxiety depression disorder Endocrine/Metabolic: Reports: Diabetes, type II, Other (See Below) Other Endocrine/Metabolic Family History: Father with diabetes mellitus Hematologic: Reports: None Immunologic: Reports: None Dermatologic: Reports: None Oncologic: Reports: Lung, Skin, Other (See Below) Other Oncologic Family History: Mother with unknown type of skin cancer, sister with fatal metastatic lung cancer in her 40s with no history of tobacco use - Caffeine Use Caffeine Use: Reports: Coffee (1 cup 2 times per week). Denies: Energy Drinks, Soda, Tea - Living Situation & Occupation Living situation: Reports: ( in 1978, 2 children), Extended Care Facility (Swing bed unit at [facility]) Occupation: Retired ([employer] and retired since CVA in 2013) ED ROS GENERAL - Review of Systems Review Of Systems: Comprehensive ROS is negative, except as noted in HPI. Constitutional: Reports: Malaise, Weakness, Fatigue HEENT: Reports: No Symptoms Respiratory: Reports: Cough Cardiovascular: Reports: No Symptoms Endocrine: Reports: No Symptoms GI/Abdominal: Reports: No Symptoms : Reports: No Symptoms Musculoskeletal: Reports: No Symptoms Skin: Reports: Pallor Neurological: Reports: No Symptoms Psychiatric: Reports: No Symptoms Hematologic/Lymphatic: Reports: No Symptoms Immunologic: Reports: No Symptoms ED EXAM, GENERAL - Physical Exam Exam: See Below Exam Limited By: No Limitations General Appearance: Alert, WD/WN, No Apparent Distress Throat/Mouth: Normal Inspection, Normal Lips, Normal Voice, Other (facial droop at baseline from previous stroke ) Head: Atraumatic Neck: Normal Inspection, Supple, Non-Tender Respiratory/Chest: Decreased Breath Sounds Cardiovascular: Normal Peripheral Pulses, Regular Rate, Rhythm, No Edema Peripheral Pulses: 1+: Femoral (L), Femoral (R) GI/Abdominal: Distended, Mass (right side of abdomen. with pain noted on palpation. mild bruising noted on left side of abdomen. ) Extremities: Pallor Neurological: Alert, Oriented Psychiatric: Normal Affect, Normal Mood Skin Exam: Dry, Intact, Cool, Pallor #1 Interpretation EKG Date: 01/24/21 Rhythm: NSR Rate (Beats/Min): 89 [place]: Normal P-Wave: Present QRS: Normal ST-T: Normal QT: Normal Course - Vital Signs Last Recorded V/S: Last Vital Signs Temp 36.1 C 01/24/21 21:55 Pulse 89 01/24/21 23:44 Resp 26 H 01/24/21 23:44 BP 125/75 01/24/21 23:44 Pulse Ox 100 01/24/21 23:44 - Orders/Labs/Meds Orders: Active Orders 24 hr Category Date Time Status EKG Documentation Completion [RC] STAT Care 01/24/21 21:57 Active Chest Abdomen Pelvis wo Cont [CT] Stat Exams 01/24/21 21:57 Ordered Labs: Laboratory Tests 01/24/21 01/24/21 01/24/21 Range/Units 22:30 22:30 22:30 WBC 9.3 (4.0-10.0) x10^3/uL RBC 4.36 L (4.5-6.0) x10^6/uL Hgb 10.1 L D (14.0-18.0) g/dL Hct 33.2 L (40.0-52.0) % MCV 76.1 L D (78.0-93.0) fL MCH 23.2 L (26.0-32.0) pg MCHC 30.4 L (32.0-36.0) g/dL RDW Coeff of Karin 18.6 H (10.0-15.0) % Plt Count 242 (130-400) x10^3/uL Neut % (Auto) 86.2 H (50.0-80.0) % Lymph % (Auto) 8.1 L (25.0-50.0) % [place] % (Auto) 5.4 (2.0-11.0) % Eos % (Auto) 0.1 (0.0-4.0) % Baso % (Auto) 0.2 (0.2-1.2) % PT 10.0 (9.9-12.5) SEC INR 0.9 L (2.0-3.5) Sodium 142 (136-145) mmol/L Potassium 3.7 (3.5-5.1) mmol/L Chloride 103 (98-107) mmol/L Carbon Dioxide 25 (21-32) mmol/L Anion Gap 17.7 H (5-15) mmol/L BUN 16 (7-18) mg/dL Creatinine 2.4 H (0.70-1.30) mg/dL Est Cr Clr Drug Dosing 34.58 mL/min Estimated GFR (MDRD) 27 Glucose 147 H (70-99) mg/dL Calcium 8.8 (8.5-10.1) mg/dL Corrected Calcium 9.4 (8.5-10.1) mg/dL Total Bilirubin 0.4 (0.2-1.0) mg/dL AST 24 (15-37) U/L ALT 22 (16-63) U/L Alkaline Phosphatase 119 H (46-116) U/L Creatine Kinase 95 (39-308) U/L Troponin I High Sens 9 (<=76) ng/L NT-Pro-B Natriuret Pep 381 H (<=125) pg/mL Total Protein 6.9 (6.4-8.2) g/dL Albumin 3.3 L (3.4-5.0) g/dL Globulin 3.6 Albumin/Globulin Ratio 0.92 Amylase 76 (25-115) U/L Lipase 54 L (73-393) U/L Meds: Medications Discontinued Medications Generic Name Dose Route Start Last Admin Trade Name Freq PRN Reason Stop Dose Admin Sodium Chloride 1,000 mls @ 1,000 mls/hr 01/24/21 22:43 01/24/21 22:00 Normal Saline IV 01/24/21 23:42 1,000 mls/hr ONETIME ONE Administration Departure - Departure Time of Disposition: 00:10 Disposition: DC/Tfer to Acute Hospital 02 Condition: Fair Clinical Impression: Hemoperitoneum Hypotension Qualifiers: Hypotension type: unspecified hypotension type Qualified Code(s): I95.9 - Hypotension, unspecified Syncopal episodes Qualifiers: Syncope type: unspecified Qualified Code(s): R55 - Syncope and collapse Anemia Qualifiers: Anemia type: B12 deficiency Vitamin B12 deficiency anemia type: other B12 deficiency Qualified Code(s): D51.8 - Other vitamin B12 deficiency anemias - Discharge Information *PRESCRIPTION DRUG MONITORING PROGRAM REVIEWED*: Not Applicable *COPY OF PRESCRIPTION DRUG MONITORING REPORT IN PATIENT LYNN: Not Applicable Referrals: Christophe Wahl MD [Primary Care Provider] - Forms: Interfacility Transfer EMTALA Sepsis Event Note (ED) - Focused Exam Vital Signs: Vital Signs Temp Pulse Resp BP Pulse Ox 01/24/21 23:44 89 26 H 125/75 100 01/24/21 23:19 88 28 H 115/73 98 01/24/21 22:47 82 19 109/63 96 01/24/21 21:55 36.1 C 88 23 H 100/52 L 92 L - My Orders Last 24 Hours: My Active Orders 01/24/21 21:57 EKG Documentation Completion [RC] STAT Chest Abdomen Pelvis wo Cont [CT] Stat - Assessment/Plan Last 24 Hours: My Active Orders 01/24/21 21:57 EKG Documentation Completion [RC] STAT Chest Abdomen Pelvis wo Cont [CT] Stat Assessment:: 1. syncopal episode 2. hypotension 3. hemoperitoneum 4. abdominal pain Plan: 1. Labs completed in the ER. Results reviewed with the patient 2. CT scan completed in the ER. Results reviewed with the patient 3. IV initiated in the emergency department 4. IV fluids provided 5. Pain medication given for severe pain and discomfort- 6. Zofran given in the ER to help with nausea [facility]. They would need to evaluate the case and discuss further. 2330 Contacted facility back and they had not received CT images. Provider resent them. 1205 Surgical team accepted patient to be transferred to higher level of care. 8. Patient will be transferred to a higher level of care needing further medical and/or surgical interventions 9. Patient and nursing staff was updated regarding the plan of care 10. Patient and family are agreeable to the above plan of care 11. All questions and concerns were addressed with the patient and family prior to discharge
[2021-01-24] MEDS ORDERED: Sodium Chloride 0.9% 1,000 ML IV ONE (22:43)
[2021-01-24 23:05] LABS: ANION GAP 17.7 mmol/L (5-15)
[2021-01-24 23:45] VITALS: BP 125/75; PULSE 89
[2021-01-25] MEDS ORDERED: fentaNYL 50 MCG/ML SDV IVPUSH ONE (00:35)
[2021-01-25] MEDS ORDERED: fentaNYL 50 MCG/ML SDV ONE (00:43)
--- NOTE | 2021-01-25 09:10 | CT ---
[id number] CT/CT Chest Abdomen Pelvis WO IV EXAM: CT Chest Abdomen Pelvis WO IV CLINICAL DATA: DISTENDED ABD COMPARISON STUDY: None. FINDINGS: There are numerous scattered areas of groundglass density seen throughout the lungs bilaterally. No pleural effusion, pneumothorax, or pulmonary contusion. No parenchymal airspace consolidation. No pneumomediastinum. No pericardial effusion. No lymphadenopathy. Abdomen and pelvis: Liver, spleen, gallbladder, pancreas, adrenal glands, and kidneys are unremarkable. No evidence of bowel injury, obstruction, or inflammation. Urinary bladder is intact. No lymphadenopathy, or pneumoperitoneum. Moderate amount of hyperdense fluid within the abdomen and pelvis. Bones and soft tissues: Old posterior rib fractures. IMPRESSION: 1. Moderate amount of hyperdense fluid within the abdomen and pelvis. This likely represents hemoperitoneum. Etiology of this is not well seen on this study. 2. Scattered groundglass density seen throughout the lungs bilaterally. This may be infectious/inflammatory versus mild pulmonary edema. 3. Moderate fluid distention of the stomach and thoracic portion of the esophagus. Yefri Conley DO 01/25/21 0909 Thank you for allowing us to participate in the care of your patient.
== END 2021-01-25 00:25 | disposition short-term general hospital (02) ==
LOC: VM.ED 21:44
DX: I95.9 Hypotension, unspecified (principal); K66.1 Hemoperitoneum; E78.00 Pure hypercholesterolemia, unspecified; E03.9 Hypothyroidism, unspecified; I12.9 Hypertensive chronic kidney disease with stage 1 through stage 4 chronic kidney disease, or unspecified chronic kidney disease; N18.30 Chronic kidney disease, stage 3 unspecified; D63.1 Anemia in chronic kidney disease; Z79.02 Long term (current) use of antithrombotics/antiplatelets; Z79.899 Other long term (current) drug therapy; Z88.0 Allergy status to penicillin; Z88.8 Allergy status to other drugs, medicaments and biological substances
CPT/HCPCS: 36415; 71250; 74176; 80053; 82150; 82550; 83690; 83880; 84484; 85025; 85610; 93005; 93010; 96374; 99284; 99285-25; J3010; J7030